=== PATIENT | male | born 1985 | race African-American/Black ===

== ENCOUNTER 2023-08-10 00:14 | Emergency (ER) | payer SELFPAY ==
[2023-08-10] VITALS (7 sets, daily range): BP systolic 93–126; BP diastolic 58–85; PULSE 69–85; RESP 16–20; O2SAT 89–98; BMI 27.2
--- NOTE | ~2023-08-10 | CT_ITS ---
EXAMINATION: CT HEAD WITHOUT CONTRAST CLINICAL INFORMATION: Unresponsive. COMPARISON: None available. TECHNIQUE: Contiguous axial imaging was performed from the skull base to vertex without intravenous administration of contrast. This CT examination was performed using dose optimization techniques as appropriate, variously including the following: *Automated exposure control *Adjustment of mA and/or kV according to patient size (this includes techniques or standardized protocols for targeted exams where dose is matched to indication/reason for exam; i.e. extremities or head) *Use of iterative reconstruction technique DLP: 763 mGy-cm FINDINGS: There is no evidence of acute intracranial hemorrhage or territorial infarction. No abnormal mass effect or midline shift is seen. [place] to white matter differentiation is well preserved. No extra-axial fluid collections are identified. No hydrocephalus. No significant volume loss. There is no abnormal attenuation within the brain parenchyma. No acute osseous or soft tissue abnormality. The mastoid air cells and visualized portions of the paranasal sinuses are well aerated. CT/CT head/brain wo IV con IMPRESSION: No acute intracranial pathology.
--- NOTE | ~2023-08-10 | XR_ITS ---
EXAMINATION: XR FOOT, RIGHT CLINICAL INFORMATION: Right lateral foot pain COMPARISON: None available. TECHNIQUE: AP, lateral, and oblique views of the right foot. FINDINGS: The bones and soft tissues are normal. No fracture. Alignment is anatomic. Joint spaces are maintained. XR/XR foot RT min 3V IMPRESSION: Normal right foot.
--- NOTE | 2023-08-10 00:27 | ECG_ITS ---
Test Reason : OVERDOSE Blood Pressure : / mmHG Vent. Rate : 079 BPM Atrial Rate : 079 BPM P-R Int : 154 ms QRS Dur : 088 ms QT Int : 362 ms P-R-T Axes : 067 022 030 degrees QTc Int : 415 ms Normal sinus rhythm Normal ECG No previous ECGs available Referred By: Eve Barnes Electronically Signed By:
--- NOTE | 2023-08-10 00:32 | ED.OVERDOSE ---
HPI - Overdose General Chief Complaint: ETOH/Substance Use Stated Complaint: ETOH Time Seen by Provider: 08/10/23 00:26 Source: EMS Mode of arrival: EMS Limitations: other (Unresponsive) History of Present Illness HPI Narrative: Patient comes to the emergency room via ambulance from the [facility]. Patient was found by bystanders lying down on the ground. When EMS arrived, patient was given 4 mg of Narcan, patient partially woke up. According to EMS/fire, when they arrived, patient had pinpoint pupils and agonal breathing, patient started breathing nearly normal and saturating in the mid 90s after the 1st dose of Narcan. Patient was not ventilated with Ambu bag. On arrival to the ED, patient somnolent, not answering any questions, the only thing the patient says is what the fuck? Falls back asleep and repeat. Patient does not have any ID with him, we do not know his name or any information about him Related Data Allergies Allergy/AdvReac Type Severity Reaction Status Date / Time Unable to Assess Allergy Unverified 08/10/23 00:27 Review of Systems Review of Systems: Yes Other (Intoxicated/under the influence of drugs?) [facility] Past Medical History Medical History (Updated 08/10/23 @ 01:51 by Eve Barnes MD) Substance abuse Physical Exam Vital Signs: Vital Signs: Last Vital Signs Pulse 69 08/10/23 00:28 Resp 18 08/10/23 00:28 BP 115/82 08/10/23 00:28 Pulse Ox 95 08/10/23 00:28 O2 Del Method Nasal Cannula 08/10/23 00:28 Oxygen Flow Rate 4 08/10/23 00:28 BMI result Body Mass Index 27.2 Const: Other: Appearance: Somnolent, responsive to pain. Wakes up, says what the fuck and falls back asleep Eyes: Pupils equal, round and reactive to light. ENT: Pharynx normal. Neck: Normal inspection. Neck supple. No lymph nodes noted. No crepitus CVS: Normal heart rate and rhythm. Pulses normal. Normal S1 and S2 Respiratory: No respiratory distress. Breath sounds normal. No Wheezing. No rales Abdomen: Soft and nontender. No rigidity. No distention. Skin: Skin warm and dry. Normal skin color. Normal skin turgor. Extremities: No lower extremity edema. No Lacerations. No Rash Neuro: Intoxicated/under the influence, withdraws for painful stimuli and tries to punch the nurses were trying to obtain blood/lab work Psych: intoxicated/under the influence Medical Decision Making Medical Decision Making [facility] Narrative: -my interpretation of labs: Normal hematology, relatively normal chemistry, troponin negative, urine toxicology positive for marijuana, blood alcohol level positive 366 -my interpretation of CT scan of the head: No intracranial bleed, no obvious subdural hematomas. Radiology report pending -patient's vitals stable -sign-out given to my colleague Dr. Senior Differential Diagnosis Differential Diagnoses: The differential diagnosis associated with the presentation includes (Overdose, alcohol intoxication, intracranial bleed) Admission/Observation Consideration of admission/observation: Escalation of care including admission/observation considered (Patient is on observation at this time, patient wakes up, falls back asleep, still very intoxicated) Lab Data [facility] Lab Attestation statement: I reviewed the patient's lab results. 08/10/23 00:34 08/10/23 00:34 Labs: Lab Results 08/10/23 08/10/23 Range/Units 00:34 01:10 WBC 7.9 (4.8-10.8) X10*3/uL RBC 5.17 (4.60-5.80) X10*6/uL Hgb 14.8 (14.0-18.0) g/dl Hct 43.2 (42.0-52.0) % MCV 83.6 (80.0-98.0) fL MCH 28.6 (27.0-33.0) pg MCHC 34.3 (31.0-36.0) g/dl RDW 13.8 (11.0-16.0) % Plt Count 243 (160-400) X10*3/uL MPV 9.6 (9.4-12.4) fL Immature Gran % (Auto) 0.3 (0.0-0.4) % Neut % (Auto) 51.3 (45-73) % Lymph % (Auto) 38.7 (20-40) % Curry % (Auto) 7.5 (2-11) % Eos % (Auto) 1.8 (0-4) % Baso % (Auto) 0.4 (0-2) % Lymph # (Auto) 3.0 (1.2-4.9) X10*3/uL Curry # (Auto) 0.6 (0.1-1.2) X10*3/uL Eos # (Auto) 0.1 (0.0-0.4) X10*3/uL Baso # (Auto) 0.0 (0.0-0.2) X10*3/uL Abs Immat Gran (auto) 0.02 (0.00-0.03) X10*3/uL Absolute Neuts (auto) 4.0 (2.0-8.3) x10*3/uL Absolute Nucleated RBC 0.000 (0.0-0.012) X10*3/uL Nucleated RBC % (auto) 0.0 (0.0-0.2) /100WBC Sodium 146 H (135-145) mmol/L Potassium 3.8 (3.3-5.1) mmol/L Chloride 113 H (96-108) mmol/L Carbon Dioxide 22 (22-29) mmol/L Anion Gap 15 (12-20) BUN 12 (9-16) mg/dL Creatinine 1.00 (0.5-1.4) mg/dL Estim Creat Clear Calc 106.0 Estimated GFR > 60 Random Glucose 121 H (60-115) mg/dL Calcium 9.5 (8.4-10.2) mg/dL Troponin I High Sens < 2.7 (<3.5-35.0) ng/L Urine Opiates Screen Not Detected (Not Detect) Urine Fentanyl Screen Not Detected (Not Detect) Ur Barbiturates Screen Not Detected (Not Detect) Ur Phencyclidine Scrn Not Detected (Not Detect) Ur Amphetamines Screen Not Detected (Not Detect) U Benzodiazepines Scrn Not Detected (Not Detect) Urine Cocaine Screen Not Detected (Not Detect) U Marijuana (THC) Screen POSITIVE H (Not Detect) Ethyl Alcohol 366 H* mg/dL Independent Interpretation I performed an independent interpretation of an: EKG (My interpretation of EKG: Normal sinus rhythm, heart rate 79, no ST segment depression or elevation, nonspecific T-wave inversion in lead III, QTC 415) and CT Scan Critical Care Time Critical Care Time Critical Care Time: Yes Total Critical Care Time: 45 Attestation: I have personally provided critical care time. Time includes review of lab data, radiology results, discussion with consultants, and monitoring for potential decompensation. Intervention performed as documented. Discharge Plan Discharge Clinical Impression: Alcoholic intoxication Patient Disposition: Still a Patient
[2023-08-10 00:42] LABS: MANUAL DIFF FLAG NO
[2023-08-10 00:46] LABS: Basophils Percent Auto 0.4 % (0-2); Eosinophils Absolute Auto 0.1 X10*3/uL (0.0-0.4); Eosinophils Percent Auto 1.8 % (0-4); Hematocrit 43.2 % (42.0-52.0); Hemoglobin 14.8 g/dl (14.0-18.0); Imm Gran Abs Auto 0.02 X10*3/uL (0.00-0.03); Imm Gran Pct Auto 0.3 % (0.0-0.4); Lymphocytes Percent Auto 38.7 % (20-40); Mean Corpuscular HGB Conc 34.3 g/dl (31.0-36.0); Mean Corpuscular Hemoglobin 28.6 pg (27.0-33.0); Mean Corpuscular Volume 83.6 fL (80.0-98.0); Mean Platelet Volume 9.6 fL (9.4-12.4); Monocytes Absolute Auto 0.6 X10*3/uL (0.1-1.2); Monocytes Percent Auto 7.5 % (2-11); Neutrophils Percent Auto 51.3 % (45-73); Platelet Count 243 X10*3/uL (160-400); Red Blood Count 5.17 X10*6/uL (4.60-5.80); Red Cell Distribution Width 13.8 % (11.0-16.0); White Blood Count 7.9 X10*3/uL (4.8-10.8)
[2023-08-10 00:57] LABS: Anion Gap 15 (12-20); Blood Urea Nitrogen 12 mg/dL (9-16); Calcium 9.5 mg/dL (8.4-10.2); Carbon Dioxide 22 mmol/L (22-29); Chloride 113 mmol/L (96-108); Estimated Glomerular Filt Rate > 60; Ethanol 366 mg/dL; Glucose Random 121 mg/dL (60-115); Potassium 3.8 mmol/L (3.3-5.1); Sodium 146 mmol/L (135-145)
--- NOTE | 2023-08-10 01:00 | PC.NURSE ---
20g iv placed in r hand. pt arousable to painful stimuli such as placement of iv. labs obtained and sent down to lab. pt incontinent of urine, [place] cath placed on pt to prevent incontinence. pt placed on bit setter pt to CT with this rn at bedside. pt not following commands though remains arosable to painful stimuli
[2023-08-10 01:26] LABS: Troponin-I High Sensitivity < 2.7 ng/L (<3.5-35.0)
[2023-08-10 01:26] LABS: Amphetamine Screen Urine Not Detected (Not Detect); Barbiturates, Urine Not Detected (Not Detect); Benzodiazepines Screen Urine Not Detected (Not Detect); Cannabinoid Screen Urine POSITIVE (Not Detect); Cocaine Screen Urine Not Detected (Not Detect); Fentanyl, urine Not Detected (Not Detect); Opiate Screen Urine Not Detected (Not Detect); Phencyclidine Screen Urine Not Detected (Not Detect)
--- NOTE | 2023-08-10 03:30 | PC.NURSE ---
lens edger noted quality assurance monitor cords stretched across room, crash heard from pt room. this internet systems administrator rn, ed provider, and lens edger to pt bedside. pt awake but noted to remain intoxicated while yelling for significant other. pt assisted back to bed dr marshall performed ROM and bedside evaluation of right leg and hip as pt not baring weight while standing pt denies pain, no signs of wincing or discomfort. per md no new orders post fall. security staff expressed concern for appearance of pt nose. this rn asked dr marshall to assess pt nose for signs of injury. pt tolerated palpation. no new orders placed.
--- NOTE | 2023-08-10 08:36 | PC.NURSE ---
Pt asleep at this time, occasionally readjust self in bed. RR 16
--- NOTE | 2023-08-10 12:05 | PC.NURSE ---
Addendum entered by Mehnaz Isabel 08/10/23 12:27: R foot Original Note: assumed care of patient at 1100, patient just starting to wake up, disoriented about his whereabouts, also reporting pain in his L foot that per the patient, he wasn't having last night. Patient currently resting on stretcher, respirations even and unlabored, skin pwd, alert and oriented x3
--- NOTE | 2023-08-10 14:41 | PC.NURSE ---
Pt is awake alert and oriented, ambulating with steady gait, respirations even and unlabored, skin pwd, no apparent distress
== END 2023-08-10 15:10 | disposition home or self-care (01) ==
PROVIDERS: Emergency Provider Emergency Medicine
DX: F10.129 Alcohol abuse with intoxication, unspecified (principal); Y90.8 Blood alcohol level of 240 mg/100 ml or more; R40.4 Transient alteration of awareness; R06.89 Other abnormalities of breathing
CPT/HCPCS: 36415; 70450; 73630; 80048; 80307; 84484; 85025; 93005; 99285